=== PATIENT | female | born 1945 | race Two or more races ===

== ENCOUNTER 2021-10-04 12:11 | Emergency (ER) | payer OTHER, SELFPAY ==
--- NOTE | 2021-10-04 14:32 | RAD REPORT ---
EXAM DESCRIPTION: RAD - Chest Pa And Lat (2 Views) - 10/04/2021 1:48 pm CLINICAL HISTORY: COUGH, history of breast cancer COMPARISON: None available TECHNIQUE: Frontal and lateral views of the chest were obtained. FINDINGS: The lungs are clear of a focal consolidation. Interstitial opacification is present throug hout the lung britton. On a baseline study fibrosis is not clearly distinguishable from interstitial i nfiltrate or edema. Heart size is normal and central vasculature is within normal limits. No pleur al effusion or pneumothorax seen. No acute bony finding noted. No aortic abnormality. Left mastect tim surgical changes are evident. IMPRESSION: Prominent interstitial pattern. As a baseline study fibrosis cannot be distinguished fro m a mild interstitial edema or infiltrate. No focal mass or consolidation. No significant failure or volume overload.
[2021-10-04 14:39] LABS: SARS-COV-2 RT PCR NEGATIVE (NEGATIVE)
--- NOTE | 2021-10-04 14:49 | EDPHYS ---
Physician Documentation [facility] Name: Diane Street Age: 76 yrs Sex: Female : 1945 Arrival Date: 10/04/2021 Time: 12:13 Bed 15 Private MD: ED Physician Waylon Galeano HPI: 10/04 12:49 This 76 yrs old Female presents to ER via Wheelchair with complaints of Sore Throat, cp Abdominal Pain. 12:49 The patient presents with sore throat. The patient describes throat pain as scratchy. cp Onset: The symptoms/episode began/occurred 6 day(s) ago. Severity of symptoms: in the emergency department the symptoms are unchanged, despite home interventions. 12:50 Associated signs and symptoms: Pertinent positives: cough, Sore throat intermittent cp abdomen pain but no pain now, Pertinent negatives diarrhea, fever, vomiting. Historical: - Allergies: 12:22 No Known Allergies; ab2 - PMHx: 12:22 Breast cancer; Hypertensive disorder; Diabetes mellitus; ab2 - Immunization history:: Adult Immunizations up to date. - Social history:: Smoking status: Patient denies any tobacco usage or history of. ROS: 12:55 Constitutional: Negative for body aches, chills, fever, poor PO intake. cp 12:55 Eyes: Negative for injury, pain, redness, and discharge. cp 12:55 ENT: Positive for sore throat, Negative for drainage from ear(s), ear pain, difficulty cp swallowing, difficulty handling secretions. 12:55 Cardiovascular: Negative for chest pain, edema, palpitations. 12:55 Respiratory: Positive for cough, Negative for shortness of breath, wheezing. 12:55 Abdomen/GI: Negative for abdominal pain, nausea, vomiting, and diarrhea, constipation. 12:55 : Negative for urinary symptoms. cp 12:55 Neuro: Negative for altered mental status, dizziness, headache, weakness. 12:55 All other systems are negative. Exam: 13:00 Constitutional: The patient appears in no acute distress, alert, awake, cp non-diaphoretic, non-toxic, well developed, well nourished. 13:00 Head/Face: Normocephalic, atraumatic. cp 13:00 Eyes: Periorbital structures: appear normal, Conjunctiva: normal, no exudate, no injection, Sclera: no appreciated abnormality, Lids and lashes: appear normal, bilaterally. 13:00 ENT: External ear(s): are unremarkable, Ear canal(s): are normal, clear, TM's: bulging, is not appreciated, bilaterally, dullness, bilaterally, erythema, is not appreciated, bilaterally, Nose: is normal, Mouth: Lips: moist, Oral mucosa: pink and intact, moist, Posterior pharynx: Airway: no evidence of obstruction, patent, Tonsils: no enlargement, no exudate, swelling, is not appreciated, erythema, is not appreciated, exudate, is not appreciated. 13:00 Neck: Lymph nodes: no appreciated lymphadenopathy. 13:00 Chest/axilla: Inspection: normal. 13:00 Cardiovascular: Rate: normal, Rhythm: regular, Edema: ankle edema, that is mild, JVD: is not appreciated. 13:00 Respiratory: the patient does not display signs of respiratory distress, Respirations: normal, no use of accessory muscles, no retractions, labored breathing, is not present, Breath sounds: are clear throughout, no decreased breath sounds, no stridor, no wheezing. 13:00 Abdomen/GI: Inspection: abdomen appears normal, Bowel sounds: active, all quadrants, Palpation: abdomen is soft and non-tender, in all quadrants. 13:00 Back: CVA tenderness, is absent. 13:00 Neuro: Orientation: to person, place \\T\\ time. Mentation: is normal. Vital Signs: 12:20 BP 131 / 74; Pulse 89; Resp 17; Temp 98.4; Pulse Ox 98% on R/A; Weight 68.04 kg; Height ab2 5 ft. 2 in. (157.48 cm); 15:02 BP 128 / 78; Pulse 87; Resp 16 S; Pulse Ox 98% on R/A; jd3 12:20 Body Mass Index 27.44 (68.04 kg, 157.48 cm) ab2 MDM: 12:42 Patient medically screened. cp 13:00 Differential diagnosis: influenza, pharyngitis, retropharyngeal abcess tonsillitis, cp uvulitis, pneumonia, COVID-19. 14:48 Data reviewed: vital signs, nurses notes, lab test result(s), radiologic studies, plain cp films. 14:48 Test interpretation: by ED physician or midlevel provider: plain radiologic studies. cp Counseling: I had a detailed discussion with the patient and/or guardian regarding: the historical points, exam findings, and any diagnostic results supporting the discharge/admit diagnosis, lab results, radiology results, the need for outpatient follow up, a family practitioner, to return to the emergency department if symptoms worsen or persist or if there are any questions or concerns that arise at home. 10/04 12:49 Order name: Strep; Complete Time: 14:43 cp 10/04 12:49 Order name: COVID-19/FLU A+B (Document "Date of Onset" if Symptomatic); Complete Time: cp 14:43 10/04 12:49 Order name: XRAY Chest Pa And Lat (2 Views); Complete Time: 14:43 cp 10/04 14:44 Interpretation: Report reviewed. cp 10/04 14:28 Order name: Throat Culture EDMS Administered Medications: No medications were administered Disposition: 15:51 Co-signature as Attending Physician, Waylon Galeano MD I agree with the assessment and kdr plan of care. Disposition Summary: 10/04/21 14:48 Discharge Ordered Location: Home cp Problem: new cp Symptoms: have improved cp Condition: Stable cp Diagnosis - Acute bronchitis, unspecified cp - Acute pharyngitis, unspecified cp Followup: cp - With: Private Physician - When: 2 - 3 days - Reason: Recheck today's complaints Discharge Instructions: - Discharge Summary Sheet cp - Acute Bronchitis, Adult cp - Pharyngitis cp - Sore Throat cp Forms: - Medication Reconciliation Form cp - Thank You Letter cp - Antibiotic Education cp - Prescription Opioid Use cp Prescriptions: - Bromfed DM 2-30-10 mg/5 mL Oral syrup - take 10 milliliter by ORAL route every 6 hours As needed; 200 milliliter; cp Refills: 0, Product Selection Permitted - Lidocaine Viscous - take 1 Teaspoon by ORAL route every 4-6 hours As needed swish, gargle, swallow; cp 1 bottle; Refills: 0, Product Selection Permitted - Zithromax Z-Donell 250 mg Oral Tablet - take 1 tablet by ORAL route as directed for 5 days Day 1 - take two (2) tablets cp one time. Day 2, 3, 4 , 5 take one (1) tablet once daily.; 6 tablet; Refills: 0, Product Selection Permitted Signatures: Dispatcher [employer] EDMS Rittger, Waylon, MD MD kdr Page, Gerardo, PA PA cp Bleininger, Tereso ab2
--- NOTE | 2021-10-04 14:49 | ER ---
Nurse's Notes [facility] Name: Diane Street Age: 76 yrs Sex: Female : 1945 Arrival Date: 10/04/2021 Time: 12:13 Bed 15 Private MD: Diagnosis: Acute bronchitis, unspecified;Acute pharyngitis, unspecified Presentation: 10/04 12:20 Chief complaint: Patient's son or daughter states: "She has been c/o a sore throat for ab2 5-6 days, she's been coughing and she has been c/o abdominal pain too." Pt denies any n/v/d. Pt c/o lower abdominal pain. Coronavirus screen: Vaccine status: Patient reports receiving the 2nd dose of the covid vaccine. Client denies travel out of the [place] in the last 14 days. At this time, the client does not indicate any symptoms associated with coronavirus-19. Ebola Screen: Patient negative for fever greater than or equal to 101.5 degrees Fahrenheit, and additional compatible Ebola Virus Disease symptoms Patient denies exposure to infectious person. Patient denies travel to an Ebola-affected area in the 21 days before illness onset. No symptoms or risks identified at this time. Initial Sepsis Screen: Does the patient meet any 2 criteria? No. Patient's initial sepsis screen is negative. Does the patient have a suspected source of infection? No. Patient's initial sepsis screen is negative. Risk Assessment: Do you want to hurt yourself or someone else? Patient reports no desire to harm self or others. Onset of symptoms is unknown. 12:20 Method Of Arrival: Wheelchair ab2 12:20 Acuity: RODNEY 3 ab2 Triage Assessment: 12:24 General: Appears in no apparent distress. uncomfortable, Behavior is calm, cooperative, ab2 appropriate for age. Pain: Complains of pain in right lower quadrant and left lower quadrant. EENT: Reports pain when swallowing. Neuro: Level of Consciousness is awake, alert, obeys commands, Oriented to person, place, time, situation, Appropriate for age Radiology Scheduler are equal bilaterally Moves all extremities. Cardiovascular: No deficits noted. Denies chest pain, shortness of breath, Patient's skin is warm and dry. Respiratory: No deficits noted. Airway is patent Respiratory effort is even, unlabored, Respiratory pattern is regular, symmetrical. GI: Reports lower abdominal pain, upper abdominal pain. Derm: Skin is diaphoretic. Historical: - Allergies: 12:22 No Known Allergies; ab2 - PMHx: 12:22 Breast cancer; Hypertensive disorder; Diabetes mellitus; ab2 - Immunization history:: Adult Immunizations up to date. - Social history:: Smoking status: Patient denies any tobacco usage or history of. Screenin:27 Abuse screen: Denies threats or abuse. Nutritional screening: No deficits noted. jd3 Tuberculosis screening: No symptoms or risk factors identified. Fall Risk Ambulatory Aid- None/Bed Rest/Nurse Assist (0 pts). Gait- Normal/Bed Rest/Wheelchair (0 pts) Mental Status- Oriented to own ability (0 pts). Total Graham Fall Scale indicates No Risk (0-24 pts). Assessment: 13:07 General: Appears in no apparent distress. comfortable, Behavior is calm, cooperative, jd3 appropriate for age. Pain: Complains of pain in throat Quality of pain is described as gnawing. Neuro: Level of Consciousness is awake, alert, obeys commands, Oriented to person, place, time, situation. Cardiovascular: Denies chest pain, Capillary refill < 3 seconds Patient's skin is warm and dry. Respiratory: Reports cough that is non-productive, dry, persistent Airway is patent Respiratory effort is even, unlabored, Respiratory pattern is regular, symmetrical, Denies shortness of breath. GI: Abdomen is round Abd is soft and non tender X 4 quads. Patient currently denies diarrhea, nausea, vomiting. : No signs and/or symptoms were reported regarding the genitourinary system. EENT: Throat is clear is pink. Derm: Skin is intact, Skin is dry, Skin is normal, Skin temperature is warm. Musculoskeletal: Circulation, motion, and sensation intact. Range of motion: intact in all extremities. 13:54 Reassessment: Patient appears in no apparent distress at this time. No changes from jd3 previously documented assessment. Patient and/or family updated on plan of care and expected duration. Pain level reassessed. Patient is alert, oriented x 3, equal unlabored respirations, skin warm/dry/pink. 15:01 Reassessment: Patient appears in no apparent distress at this time. No changes from jd3 previously documented assessment. Patient and/or family updated on plan of care and expected duration. Pain level reassessed. Patient is alert, oriented x 3, equal unlabored respirations, skin warm/dry/pink. Vital Signs: 12:20 BP 131 / 74; Pulse 89; Resp 17; Temp 98.4; Pulse Ox 98% on R/A; Weight 68.04 kg; Height ab2 5 ft. 2 in. (157.48 cm); 15:02 BP 128 / 78; Pulse 87; Resp 16 S; Pulse Ox 98% on R/A; jd3 12:20 Body Mass Index 27.44 (68.04 kg, 157.48 cm) ab2 ED Course: 12:13 Patient arrived in ED. as 12:18 Gerardo Walker PA is PHCP. cp 12:18 Waylon Galeano MD is Attending Physician. cp 12:22 Triage completed. ab2 12:25 Arm band placed on right wrist. ab2 12:32 Bandar Kovacs RN is Primary Nurse. jd3 13:07 Strep Sent. jd3 13:07 COVID-19/FLU A+B (Document "Date of Onset" if Symptomatic) Sent. jd3 13:27 Patient has correct armband on for positive identification. Bed in low position. Call jd3 light in reach. Side rails up X 1. Adult w/ patient. Pulse ox on. NIBP on. 13:50 XRAY Chest Pa And Lat (2 Views) In Process Unspecified. EDMS 15:01 No provider procedures requiring assistance completed. Patient did not have IV access jd3 during this emergency room visit. Administered Medications: No medications were administered Outcome: 14:48 Discharge ordered by . cp 15:01 Discharged to home via wheelchair, with family. jd3 15:01 Condition: stable 15:01 Discharge instructions given to patient, family, Instructed on discharge instructions, follow up and referral plans. medication usage, Demonstrated understanding of instructions, follow-up care, medications, Prescriptions given X 3. 15:02 Patient left the ED. jd3 Signatures: Dispatcher [employer] EDMS Tiarra Hui as Gerardo Walker PA PA cp Bandar Kovacs, RN RN jd3 Tereso Traylor ab2
[2021-10-04 15:28] VITALS: TEMP 98.4; O2SAT 98
[2021-10-04 15:31] VITALS: BP 128/78
== END 2021-10-04 15:02 | disposition home or self-care (01) ==
LOC: ER 12:11
DX: J20.9 Acute bronchitis, unspecified (principal); J02.9 Acute pharyngitis, unspecified; E11.9 Type 2 diabetes mellitus without complications; I10 Essential (primary) hypertension; Z20.822 Contact with and (suspected) exposure to COVID-19; Z85.3 Personal history of malignant neoplasm of breast
CPT/HCPCS: 87070; 87081; 0240U; 71046; 99284